=== PATIENT | male | born 1955 | race African-American/Black ===

== ENCOUNTER 2023-03-04 09:05 | Emergency (ER) | payer OTHER ==
[2023-03-04 10:10] LABS: #Eosinphils 0.4 10x3/uL (0.0-0.5); #Monocytes 0.7 10x3/uL (0.0-1.1); #Neutrophils 3.2 10x3/uL (1.5-8.4); %Basophils 0.8 % (0.0-2.0); %Eosinophils 7.3 % (0.0-6.0); %Lymphocytes 17.1 % (18.0-47.0); %Neutrophils 60.4 % (40.0-75.0); Hematocrit 37.4 % (38.8-50.0); Hemoglobin 12.5 g/dL (13.5-17.5); Mean Corpuscular HGB CONC 33.4 g/dL (32.0-36.0); Mean Corpuscular Hemoglobin 27.3 pg (27.0-33.0); Mean Corpuscular Volume 81.7 fl (81.2-95.1); Mean Platelet Volume 8.3 fl (7.4-10.4); Platelet Count 235 10x3/uL (150-450); RBC Distribution Width 12.7 % (11.5-14.5); Red Blood Cell (RBC) Count 4.58 10x6/uL (4.32-5.72); White Blood Cell (WBC) Count 5.2 10x3/uL (3.5-10.5)
[2023-03-04 10:23] LABS: SARS-CoV-2 NAA Rapid Test Not Detected (NotDetected)
[2023-03-04] MEDS ORDERED: Ipratropium/Albuterol 3 ML NEB ONE (10:32)
[2023-03-04 10:34] LABS: Troponin I 0.023 ng/mL (< 0.028)
[2023-03-04 10:35] LABS: ALT (SGPT) 19 U/L (8-55); AST (SGOT) 18 U/L (5-34); Albumin 3.8 g/dL (3.4-4.8); Alkaline Phosphatase 120 U/L (40-110); Anion Gap 15 mmol/L (10-20); BUN (Urea Nitrogen) 8 mg/dL (8.4-25.7); Bilirubin, Total 0.7 mg/dL (0.2-1.2); Calc. Creatinine Clearance 0 mL/min (70-130); Calcium 8.7 mg/dL (7.8-10.44); Carbon Dioxide 24 mmol/L (23-31); Chloride 97 mmol/L (98-107); Estimated GFR 59; Globulin 3.1 g/dL (2.4-3.5); Glucose 276 mg/dL (80-115); Protein, Total 6.9 g/dL (5.8-8.1); Sodium 132 mmol/L (136-145)
== END 2023-03-04 11:38 | disposition home or self-care (01) ==
LOC: CSHERS 09:05
DX: J10.1 Influenza due to other identified influenza virus with other respiratory manifestations (principal); I10 Essential (primary) hypertension
CPT/HCPCS: 36416; 71045; 80053; 84484; 85025; 93005; J7620